=== PATIENT | female | born 1965 | race Caucasian/White ===

== ENCOUNTER → 2017-08-18 | Outpatient (CLI) | payer MEDICARE, OTHER ==
--- NOTE | ~2017-08-18 | CR181 ---
[facility] A Service of [facility] RADIOLOGY TEXT RESULTS PATIENT: LUCA WILEY LOCATION: [facility] : [birth year] UNIT #: [id number] AGE: [address]: Ravi Tenorio MD SEX: F ORDER DR: [id number] [facility] [address] [place], [place] [address] [id number] O MR#: [id number] Acc #: [id number] NAME: LUCA WILEY : 1965 SEX: F STUDY DATE/TIME: 08/18/2017 12:11 UNIT: [facility] ROOM: STUDY DESCRIPTION: CR Lumbar Spine 2 or 3 Views Attending Physician: Ravi Tenorio M.D. Referring Physician: Ravi Tenorio M.D. Ordering Physician: Ravi Tenorio M.D. Primary Care Physician: Laura Dang M.D. MEDICAL IMAGING REPORT This report is preliminary unless electronic signature is present EXAM Lumbar spine, 3 views. HISTORY Low back pain for [address] chest, PE protocol, 12/04/2010. FINDINGS AP, lateral and cone lateral views of the lumbar spine submitted. Patient is status post L5-S1 discectomy and posterior spinal fusion with an intervertebral disc spacer L5-S1 with incorporation of the spacer and fusion across the 5-1 disc space. Bilateral L5 and bilateral S1 fixation screws with intact instrumentation. Degenerative disc changes noted at L4-5. Chronic compression fracture deformity of L1 with about 30% to 40% loss of the central vertebral body height. This fracture was present on the patient's study from 2010, and does not appear appreciably changed. Partially visualized is an apparent intrathecal pain pump with tubing extending intrathecal at about the L1-2 level and terminating at T9. IMPRESSION 1. Status post L5-S1 discectomy with anterior and posterior spinal fusion and intact instrumentation. 2. Chronic L1 compression fracture with about 30% to 40% loss of the central vertebral body height. 3. L4-5 degenerative disc disease. 4. Partially visualized intrathecal pain pump. Dictated by.Tomas Banegas M.D. [facility] A Service of [facility] RADIOLOGY TEXT RESULTS PATIENT: LUCA WILEY LOCATION: [facility] : [birth year] UNIT #: [id number] AGE: [address]: Ravi Tenorio MD SEX: F ORDER DR: THIS IS AN ELECTRONICALLY VERIFIED REPORT Herminia Banegas M.D. at 08/19/2017 4:46 PM Burke TD: 08/18/2017 20:37 JOB #: [id number] MEDICAL IMAGING REPORT Page 1 of 1 COPY
--- NOTE | ~2017-08-18 | CR151 ---
[facility] A Service of [facility] RADIOLOGY TEXT RESULTS PATIENT: LUCA WILEY LOCATION: [facility] : [birth year] UNIT #: [id number] AGE: [address]: Ravi Tenorio MD SEX: F ORDER DR: [id number] [facility] [address] [place], [place] [address] [id number] O MR#: [id number] Acc #: [id number] NAME: LUCA WILEY : 1965 SEX: F STUDY DATE/TIME: 08/18/2017 12:10 UNIT: [facility] ROOM: STUDY DESCRIPTION: CR Hip Min 2 Views Rt Attending Physician: Ravi Tenorio M.D. Referring Physician: Ravi Tenorio M.D. Ordering Physician: Ravi Tenorio M.D. Primary Care Physician: Laura Dang M.D. MEDICAL IMAGING REPORT This report is preliminary unless electronic signature is present EXAM Right hip and pelvis HISTORY Right hip and low back pain for 4 months. TECHNIQUE AP pelvis and frog lateral view of the right hip submitted. FINDINGS Patient is status post ORIF of a apparent subtrochanteric proximal right femur fracture with a long intramedullary nail and proximal interlocking screw. Small fragment seen off the lesser trochanter. No significant hip arthropathy. Postoperative changes seen in the lower lumbar spine from apparent L5-S1 discectomy and posterior spinal fusion. Device over the right lower abdomen suggest a pain pump. Left hip unremarkable. IMPRESSION 1. Status post ORIF of a subtrochanteric proximal right femur fracture which appears essentially healed. Some heterotopic ossification seen along the lateral aspect of the hip as well as a small displaced fragment medial aspect of the right hip probably represents a component of the lesser trochanter. No evidence of instrumentation failure. 2. Postop changes of the lower lumbar spine from apparent discectomy and anterior posterior spinal fusion. Dictated by... Herminia Banegas M.D. THIS IS AN ELECTRONICALLY VERIFIED REPORT Herminia Banegas M.D. at 08/19/2017 4:46 PM JMS/to [facility] A Service of [facility] RADIOLOGY TEXT RESULTS PATIENT: LUCA WILEY LOCATION: [facility] : [birth year] UNIT #: [id number] AGE: [address]: Ravi Tenorio MD SEX: F ORDER DR: TD: 08/18/2017 20:38 JOB #: [id number] MEDICAL IMAGING REPORT Page 1 of 1 COPY
== END | disposition home or self-care (01) ==
LOC: CRAD 11:33
DX: M25.551 Pain in right hip (principal); S72.21XD Displaced subtrochanteric fracture of right femur, subsequent encounter for closed fracture with routine healing; M48.56XD Collapsed vertebra, not elsewhere classified, lumbar region, subsequent encounter for fracture with routine healing; M51.86 Other intervertebral disc disorders, lumbar region; M51.36 Other intervertebral disc degeneration, lumbar region; Z98.1 Arthrodesis status; Z98.890 Other specified postprocedural states
CPT/HCPCS: 72100; 73502